=== PATIENT | female | born 1970 | race Asian ===

== ENCOUNTER → 2019-05-16 | Outpatient (CLI) | payer OTHER ==
--- NOTE | 2019-05-16 16:43 | RAD ---
2 view left knee study Clinical indications: Left knee pain FINDINGS: No acute fracture or dislocation or lytic process is evident. Mild degenerative spurring and joint space narrowing of the medial tibial femoral joint compartment is seen. No significant left knee joint effusion is seen. IMPRESSION: Mild primary degenerative osteoarthritis. Electronically signed by: Patrick Gong MD (05/16/2019 4:40 PM) [id number]
== END | disposition home or self-care (01) ==
LOC: RAD 10:43
PROVIDERS: ATTEND Family Medicine
DX: M17.12 Unilateral primary osteoarthritis, left knee (principal); M25.862 Other specified joint disorders, left knee; M76.892 Other specified enthesopathies of left lower limb, excluding foot
CPT/HCPCS: 73560